=== PATIENT | male | born 1960 | race Caucasian/White ===

== ENCOUNTER → 2016-11-26 | Outpatient (CLI) | payer BC ==
[~2016-11-26] MED LIST: ALBU17IN INH; DOXY100C37 PO; OXYC1TAB23 PO; PRED20TA; PROAAER10 INH
--- NOTE | 2016-11-26 16:44 | REP ---
Unilateral right-sided rib series: Five views including PA chest. History: Right chest wall contusion. Anterior pain. Findings: PA chest radiograph demonstrates a tiny right apical pneumothorax measuring only 4 mm. No hemothorax is seen. Mediastinum is not widened. Heart is not enlarged. Lung zayas are otherwise clear. Multiple rib views demonstrate nondisplaced fractures of the posterolateral 8th, 9th, 10th, and 11th ribs. These appear acute. No other fractures seen. No bony destructive lesion is seen. Impression: Right 8th, 9th, 10th, and 11th rib fractures posterolaterally, nondisplaced. Small right apical pneumothorax. Signed by David Jimenez MD 11/26/2016 05:00 P
== END ==
LOC: M ADAMS 14:21
PROVIDERS: ATTEND Physician Assistant
DX: S22.41XA Multiple fractures of ribs, right side, initial encounter for closed fracture (principal); J93.9 Pneumothorax, unspecified; X58.XXXA Exposure to other specified factors, initial encounter; Y93.9 Activity, unspecified; Y92.9 Unspecified place or not applicable; Y99.8 Other external cause status

== ENCOUNTER 2016-11-27 15:33 | Emergency (ER) | payer BC ==
[~2016-11-27] VITALS: Ht 175.3 cm; Wt 70.0 kg
[2016-11-27] MEDS ORDERED: ALBU17IN INH (15:44)
[2016-11-27] MEDS ORDERED: OXYC1TAB23 PO (15:44)
[2016-11-27] MEDS ORDERED: PRED20TA (15:44)
[2016-11-27] MEDS ORDERED: IPRATROPIUM 0.5MG/ALBUTEROL 2.5MG INH SOL UD 3ML (DUONEB)(J7620) NEB ONE (16:45)
[2016-11-27] MEDS ORDERED: methylPREDNISolone INJ 125 MG/2 ML VIAL (J2930) IV ONE (16:45)
--- NOTE | 2016-11-27 17:11 | REP ---
Portable chest, 04:50 p.m., single AP view, the patient upright: Comparison is the right rib series of 11/26/2016. The the patient has known right rib fractures. There is atelectasis inferomedially in the right lung. There is no pneumothorax. Lung zayas otherwise clear. Cardiac size normal. Felisha, mediastinum, bony thorax are unremarkable. Signed by Zhou Espinosa MD 11/27/2016 05:02 P
[2016-11-27 17:22] LABS: BASO # 0.1 10^3/uL (0.0-0.2); BASO % 0.3 % (0.0-1.0); EOS % 0.1 % (0.0-3.0); IMMATURE GRANULOCYTE % 0.4 % (0-0); LYMPH # 0.6 10^3/uL (1.5-4.5); LYMPH % 3.7 % (24.0-44.0); MEAN CORPUSCULAR HEMOGLOBIN 31.1 pg (27.0-33.0); MEAN CORPUSCULAR HGB CONC 34.1 g/dl (32.0-36.5); MONO % 7.7 % (0.0-5.0); NEUTROPHILS # 13.6 10^3/uL (1.8-7.7); NEUTROPHILS % 87.8 % (36.0-66.0); PLATELET COUNT, AUTOMATED 215 10^3/uL (150-450); RED CELL DISTRIBUTION WIDTH 14.4 % (11.5-14.5); WHITE BLOOD COUNT 15.5 10^3/uL (4.0-10.0)
[2016-11-27 17:54] LABS: MONO # 1.2 10^3/uL (0.0-0.8)
[2016-11-27 17:57] LABS: ADD MORPHOLOGY? NO
[2016-11-27 18:04] LABS: ALBUMIN 3.8 GM/DL (3.2-5.2); ALBUMIN/GLOBULIN RATIO 1.19 (1.00-1.93); ALKALINE PHOSPHATASE 64 U/L (45-117); ALT/SGPT 19 U/L (12-78); ANION GAP 4 MEQ/L (8-16); AST/SGOT 10 U/L (15-37); BILIRUBIN,DIRECT 0.3 MG/DL (0.0-0.2); BILIRUBIN,TOTAL 0.9 MG/DL (0.2-1.0); BLOOD UREA NITROGEN 12 MG/DL (7-18); CALCIUM LEVEL 8.9 MG/DL (8.5-10.1); CARBON DIOXIDE LEVEL 29 MEQ/L (21-32); CHLORIDE LEVEL 106 MEQ/L (98-107); CREATININE FOR GFR 0.76 MG/DL (0.70-1.30); GLOMERULAR FILTRATION RATE > 60.0 (>56); GLUCOSE, FASTING 90 MG/DL (70-105); POTASSIUM SERUM 4.2 MEQ/L (3.5-5.1); SODIUM LEVEL 139 MEQ/L (136-145)
[2016-11-27] MEDS ORDERED: ISOVUE-370 76% 100ML VIAL (Q9967) As Ordered ONE (18:14)
[2016-11-27 18:17] VITALS: BP 151/107
--- NOTE | 2016-11-27 18:50 | REPUSA ---
CT of the chest Clinical statement: Chest pain. Technique: Multiple axial CT images were obtained from the thoracic inlet through the upper abdomen a fter a bolus administration of nonionic intravenous contrast. Coronal and sagittal reconstructions we re also obtained. No comparison is available. Findings: The central pulmonary arteries and thoracic aorta are unremarkable. Thyroid gland is within normal limits. There is no thoracic lymphadenopathy. There are no pericardial or pleural effusions. There is patchy atelectasis in the right lower lobe. Consolidation is seen in the medial left lower l obe. Limited imaging of the upper abdomen is unremarkable. There are acute subtle nondisplaced fractu res of the lateral left 8th, 9th, and 10th ribs. Impression: 1. Consolidation in the medial left lower lobe either represents pneumonia or atelectatic collapse of the segment of the left lower lobe. 2. Minimal patchy atelectasis in the right lower lung. 3. Acute subtle nondisplaced fractures of the lateral left 8th, 9th, and 10th ribs.
[2016-11-27] MEDS ORDERED: DOXYCYCLINE HYCLATE 100 MG in D5W MINI-BAG PLUS 100 ML IV ONE (19:15)
[2016-11-27] MEDS ORDERED: DOXY100C37 PO (19:38)
[2016-11-27] MEDS ORDERED: PROAAER10 INH (19:39)
--- NOTE | 2016-11-28 06:27 | ECGEPIP ---
Stationary ECG Study 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
== END 2016-11-27 20:02 | disposition home or self-care (01) ==
LOC: M ED 15:33
DX: J18.9 Pneumonia, unspecified organism (principal); S22.42XA Multiple fractures of ribs, left side, initial encounter for closed fracture; Z72.0 Tobacco use; W01.198A Fall on same level from slipping, tripping and stumbling with subsequent striking against other object, initial encounter; Y92.89 Other specified places as the place of occurrence of the external cause; Y93.89 Activity, other specified; Y99.9 Unspecified external cause status
CPT/HCPCS: 71010; 71260; 80048; 80076; 83880; 85025; 93005; 93041; 94640; 94760; 96374; 96375; 99285; J2930; Q9967

== ENCOUNTER → 2017-05-14 | Outpatient (REF) | payer BC ==
[2017-05-14 16:10] LABS: BASO # 0.1 10^3/uL (0.0-0.2); BASO % 0.9 % (0.0-1.0); EOS # 0.2 10^3/uL (0.0-0.50); EOS % 1.7 % (0.0-3.0); HEMATOCRIT 43.3 % (42.0-52.0); HEMOGLOBIN 14.4 g/dl (14.0-18.0); IMMATURE GRANULOCYTE % 0.6 % (0-3.0); LYMPH # 1.1 10^3/uL (1.5-4.5); MEAN CORPUSCULAR HEMOGLOBIN 28.6 pg (27.0-33.0); MEAN CORPUSCULAR HGB CONC 33.3 g/dl (32.0-36.5); MEAN CORPUSCULAR VOLUME 86.1 fl (80.0-96.0); MONO # 1.2 10^3/uL (0.0-0.8); MONO % 13.4 % (0.0-5.0); NEUTROPHILS # 6.3 10^3/uL (1.8-7.7); NEUTROPHILS % 71.4 % (36.0-66.0); PLATELET COUNT, AUTOMATED 446 10^3/uL (150-450); RED BLOOD COUNT 5.03 10^6/uL (4.30-6.10); RED CELL DISTRIBUTION WIDTH 14.4 % (11.5-14.5); WHITE BLOOD COUNT 8.8 10^3/uL (4.0-10.0)
[2017-05-14 16:21] LABS: URIC ACID 4.8 MG/DL (3.5-7.2)
[2017-05-14 16:21] LABS: RHEUMATOID FACTOR QUANT 46.6 IU/ML (0-15.0)
[2017-05-14 17:19] LABS: ERYTHROCYTE SEDIMENTATION RATE 42 mm/hr (0-20)
[2017-05-17 00:07] LABS: ANA (HEP2) Positive (.); Lyme Disease IgG/IgM Antibodie <0.91 ISR (0.00-0.90); Lyme Disease IgM Ab Quantitati <0.80 index (0.00-0.79)
[2017-05-17 00:07] LABS: CYCLIC CITRULLINATED PEPTIDE > 250 units (0-19)
== END ==
LOC: M LABDRAW1 15:37
DX: M13.0 Polyarthritis, unspecified (principal)
CPT/HCPCS: 84550

== ENCOUNTER → 2017-10-07 | Outpatient (REF) | payer BC ==
[2017-10-07 11:59] LABS: ALBUMIN 3.6 GM/DL (3.2-5.2); ALT/SGPT 18 U/L (12-78); AST/SGOT 13 U/L (7-37); C REACTIVE PROTEIN QUANTITATIV 0.56 MG/DL (0.00-0.30); GLOMERULAR FILTRATION RATE > 60.0 (>56)
[2017-10-07 12:03] LABS: BASO # 0.1 10^3/uL (0.0-0.2); BASO % 0.8 % (0.0-1.0); EOS # 0.2 10^3/uL (0.0-0.50); EOS % 1.9 % (0.0-3.0); HEMATOCRIT 46.6 % (42.0-52.0); HEMOGLOBIN 15.8 g/dl (13.5-17.5); IMMATURE GRANULOCYTE % 0.5 % (0-3.0); LYMPH # 1.6 10^3/uL (1.5-4.5); LYMPH % 16.4 % (24.0-44.0); MEAN CORPUSCULAR HEMOGLOBIN 30.3 pg (27.0-33.0); MEAN CORPUSCULAR HGB CONC 33.9 g/dl (32.0-36.5); MEAN CORPUSCULAR VOLUME 89.4 fl (80.0-96.0); MONO # 0.7 10^3/uL (0.0-0.8); MONO % 7.4 % (0.0-5.0); NEUTROPHILS # 6.9 10^3/uL (1.8-7.7); PLATELET COUNT, AUTOMATED 325 10^3/uL (150-450); RED BLOOD COUNT 5.21 10^6/uL (4.30-6.10); RED CELL DISTRIBUTION WIDTH 15.9 % (11.5-14.5); WHITE BLOOD COUNT 9.5 10^3/uL (4.0-10.0)
[2017-10-07 13:04] LABS: ERYTHROCYTE SEDIMENTATION RATE 3 mm/hr (0-20)
== END ==
LOC: M LABDRAW1 10:09
DX: M06.89 Other specified rheumatoid arthritis, multiple sites (principal); M15.0 Primary generalized (osteo)arthritis; M25.561 Pain in right knee
CPT/HCPCS: 84460

== ENCOUNTER → 2018-03-03 | Outpatient (REF) | payer BC ==
[2018-03-03 16:07] LABS: BASO # 0.1 10^3/uL (0.0-0.2); BASO % 0.8 % (0.0-1.0); EOS # 0.1 10^3/uL (0.0-0.50); EOS % 0.9 % (0.0-3.0); HEMATOCRIT 46.5 % (42.0-52.0); HEMOGLOBIN 16.1 g/dl (13.5-17.5); LYMPH # 1.6 10^3/uL (1.5-4.5); LYMPH % 20.6 % (24.0-44.0); MEAN CORPUSCULAR HEMOGLOBIN 31.3 pg (27.0-33.0); MEAN CORPUSCULAR HGB CONC 34.6 g/dl (32.0-36.5); MEAN CORPUSCULAR VOLUME 90.3 fl (80.0-96.0); MONO # 0.9 10^3/uL (0.0-0.8); MONO % 10.8 % (0.0-5.0); NEUTROPHILS # 5.3 10^3/uL (1.8-7.7); NEUTROPHILS % 66.4 % (36.0-66.0); PLATELET COUNT, AUTOMATED 334 10^3/uL (150-450); RED BLOOD COUNT 5.15 10^6/uL (4.30-6.10)
[2018-03-03 16:12] LABS: ALBUMIN 3.6 GM/DL (3.2-5.2); ALT/SGPT 15 U/L (12-78); C REACTIVE PROTEIN QUANTITATIV 0.76 MG/DL (0.00-0.30); CREATININE FOR GFR 0.76 MG/DL (0.70-1.30); GLOMERULAR FILTRATION RATE > 60.0 (>56)
[2018-03-03 16:52] LABS: ERYTHROCYTE SEDIMENTATION RATE 2 mm/hr (0-20)
== END ==
LOC: M LABDRAW1 15:28
PROVIDERS: ATTEND Internal Medicine Rheumatology
DX: Z51.81 Encounter for therapeutic drug level monitoring (principal); M05.79 Rheumatoid arthritis with rheumatoid factor of multiple sites without organ or systems involvement; Z79.899 Other long term (current) drug therapy

== ENCOUNTER → 2018-07-07 | Outpatient (CLI) | payer BC ==
[2018-07-07 16:54] LABS: BASO # 0.1 10^3/uL (0.0-0.2); BASO % 1.1 % (0.0-1.0); EOS # 0.2 10^3/uL (0.0-0.50); EOS % 2.3 % (0.0-3.0); HEMATOCRIT 45.9 % (42.0-52.0); HEMOGLOBIN 15.6 g/dl (13.5-17.5); LYMPH # 1.9 10^3/uL (1.5-4.5); MEAN CORPUSCULAR HEMOGLOBIN 30.4 pg (27.0-33.0); MEAN CORPUSCULAR VOLUME 89.5 fl (80.0-96.0); MONO # 1.1 10^3/uL (0.0-0.8); MONO % 13.3 % (0.0-5.0); NEUTROPHILS % 59.9 % (36.0-66.0); PLATELET COUNT, AUTOMATED 312 10^3/uL (150-450); RED BLOOD COUNT 5.13 10^6/uL (4.30-6.10); WHITE BLOOD COUNT 8.3 10^3/uL (4.0-10.0)
[2018-07-07 17:01] LABS: ALBUMIN 3.6 GM/DL (3.2-5.2); ALT/SGPT 15 U/L (12-78); BILIRUBIN,TOTAL 0.9 MG/DL (0.2-1.0); BLOOD UREA NITROGEN 13 MG/DL (7-18); CALCIUM LEVEL 8.7 MG/DL (8.5-10.1); CARBON DIOXIDE LEVEL 23 MEQ/L (21-32); CHLORIDE LEVEL 108 MEQ/L (98-107); CHOLESTEROL LEVEL 137 MG/DL (<200); CHOLESTEROL RISK RATIO 1.397 (<5); CREATININE FOR GFR 0.71 MG/DL (0.70-1.30); GLOMERULAR FILTRATION RATE > 60.0 (>56); GLUCOSE, FASTING 91 MG/DL (70-100); HDL CHOLESTEROL 98 MG/DL (>40); LDL CHOLESTEROL 30 MG/DL (<100); NON-HDL-C 39 MG/DL; POTASSIUM SERUM 4.3 MEQ/L (3.5-5.1); SODIUM LEVEL 138 MEQ/L (136-145); TOTAL PROTEIN 7.3 GM/DL (6.4-8.2); TRIGLYCERIDES LEVEL 45 MG/DL (<150)
== END ==
LOC: M WUC 14:05
PROVIDERS: ATTEND Family Medicine
DX: Z00.00 Encounter for general adult medical examination without abnormal findings (principal)

== ENCOUNTER 2018-12-17 12:40 | Observation (INO) | payer OTHER, BC ==
[~2018-12-17] VITALS: Ht 175.3 cm; Wt 68.4 kg
--- NOTE | 2018-12-17 14:08 | REP ---
Two-view chest: 12/17/2018. Indication: Dyspnea. Comparison: 11/27/2016. Findings: The hyperinflated lungs are clear. There is no pleural effusion or pneumothorax. The cardiomediastinal silhouette is unremarkable. Impression: Clear lungs. Electronically Signed by Bob Emanuel DO 12/17/2018 01:59 P
[2018-12-17] MEDS ORDERED: AFRI0.058 (14:19)
[2018-12-17] MEDS ORDERED: SILVER NITRATE APPLICATOR TOP ONE (14:30)
[2018-12-17] MEDS ORDERED: OXYMETAZOLINE NASAL SPRAY (AFRIN) ONE (15:30)
[2018-12-17] MEDS ORDERED: LIDOCAINE W/EPINEPHRINE 1% 20ML VIAL SC ONE (18:00)
[2018-12-17] MEDS ORDERED: EPINEPHrine 1MG/10ML SYRINGE 1.5IN IV STA ×2 (18:03→18:38)
[2018-12-17] MEDS ORDERED: EPINEPHrine INJ 1 MG/ML 1ML AMP As Ordered ONE (18:05)
[2018-12-17 21:00] VITALS: BP 133/85
--- NOTE | 2018-12-17 22:59 | HPEPDOC ---
[facility] Medical History & Physical Date of Admission Dec 17, 2018 Date of Service: Dec 17, 2018 Primary Care Physician: Sarai Dillard MD Attending Physician: SORAIDA CLAYTON MD History and Physical TIME OF SERVICE: 7:45 PM CHIEF COMPLAINT: Nosebleed HISTORY OF PRESENT ILLNESS: This is a 58-year-old male who presented to the ED with complaints of having a nosebleed for 12 hours. He attributes this to exposure to smoke/fumes from the undercoating applied to the bottom of cars in preparation for winter. Associated symptoms include headache, which has since resolved. He has a chronic cough which he attributes to smoking, denies having fevers, denies having chills, denies having chest pain, denies having palpitations. Per discussion with the ED provider. He had a Rhino Rocket which was removed after cauterization of the blood vessels by (ENT). Shortly after my arrival his nose began bleeding again. REVIEW OF SYSTEMS: 12 point review of systems negative except as listed in HPI PAST MEDICAL/ SURGICAL HISTORY: Rheumatoid arthritis ? SOCIAL HISTORY: Smoker FAMILY HISTORY: His son has chronic back pain, renal cysts, urolithiasis, and vitamin D deficiency Diabetes ALLERGIES: Please see below. HOME MEDICATIONS: Please see below. PHYSICAL EXAMINATION: VITAL SIGNS: Please see below. GENERAL APPEARANCE: Well-nourished, well-developed, not in apparent distress HEENT: Normocephalic, atraumatic, mucous membranes moist and pink. There is bleeding from the right nare. CARDIOVASCULAR: Regular rate and rhythm. No murmurs, rubs or gallops LUNGS: Clear to auscultation on room air. Bilaterally MUSCULOSKELETAL: Range of motion intact in all 4 extremities, able to stand without assistance NEUROLOGICAL: Cranial nerves II-12 are grossly intact. Speech is not dysarthric PSYCHIATRIC: Alert and oriented to person, place and time, able to understand and follow commands LABORATORY DATA: See below. IMAGING: Chest x-ray "Impression:Clear lungs." ASSESSMENT: is a 58-year-old male with past history medical of arthritis who will be admitted for observation after having a prolonged episode of epistaxis. PLAN: 1.Epistaxis. His hematocrit was 45, INR 0.9, map was 100, and his heart rate ranged from 69- 82. He is not taking any blood thinners at home The bleeding stopped temporarily after cauterization. Plan: Admit to medical floor for observation/follow-up repeat hemoglobin and hematocrit tonight/follow-up with ENT in the morning ENT 2. Arthritis. Reports that he has rheumatoid arthritis but based on his medical records , he is not taking immunomodulators Plan: Tylenol when necessary for joint pain 3. Tobacco abuse. Plan: Nicotine patch/smoking cessation education DVT prophylaxis with SCDs. Disposition likely home tomorrow if hemoglobin is stable and epistaxis has resolved Vital Signs Vital Signs Date Time Temp Pulse Resp B/P (MAP) Pulse Ox O2 Delivery O2 Flow Rate FiO2 12/17/18 19:51 66 141/86 (104) 72 140/93 (109) 85 142/101 (115) 12/17/18 14:24 97.6 17 97 Room Air Laboratory Data Labs 24H Laboratory Tests 2 12/17/18 15:40: Bedside Prothrombin Time INR 0.9, Prothrombin Time (MISC) 11.1L 12/17/18 15:44: POC Glucose (Misc Panel) 91, POC Sodium (Misc Panel) 139, POC Potassium (Misc Panel) 4.1, POC Chloride (Misc Panel) 105, POC Total CO2 (Misc Panel) 23.0, POC Blood Urea Nitrogen (Misc Panel 22, POC Ionized Calcium (Misc Panel) 4.7, POC Creatinine (Misc Panel) 0.7, POC Hematocrit (Misc Panel) 45.0 Home Medications Scheduled Oxymetazoline HCl (Afrin) 15 Ml [place], 2 SPRAY NA BID Allergies Coded Allergies: No Known Allergies (Unverified , 11/27/16) A-FIB/CHADSVASC A-FIB History Current/History of A-Fib/PAF?: No Current PO Anticoag Therapy: No SORAIDA CLAYTON MD Dec 17, 2018 22:59
[2018-12-17] MEDS ORDERED: NICOTINE 21MG/24HR 1 EA TRANSDERMAL TD SCH (23:45)
[2018-12-17] MEDS ORDERED: ACETAMINOPHEN 650MG ER TAB (TYLENOL ARTHRITIS) PO PRN (23:45)
[2018-12-18 00:49] LABS: HEMATOCRIT 41.2 % (42.0-52.0); HEMOGLOBIN 14.2 g/dl (13.5-17.5)
[2018-12-18 06:00] VITALS: BP 123/77
[2018-12-18 06:53] LABS: HEMOGLOBIN 13.9 g/dl (13.5-17.5); MEAN CORPUSCULAR HEMOGLOBIN 30.8 pg (27.0-33.0); MEAN CORPUSCULAR HGB CONC 33.9 g/dl (32.0-36.5); MEAN CORPUSCULAR VOLUME 90.7 fl (80.0-96.0); PLATELET COUNT, AUTOMATED 261 10^3/uL (150-450); RED BLOOD COUNT 4.52 10^6/uL (4.30-6.10); WHITE BLOOD COUNT 8.3 10^3/uL (4.0-10.0)
[2018-12-18 07:16] LABS: BLOOD UREA NITROGEN 33 MG/DL (7-18); CALCIUM LEVEL 8.5 MG/DL (8.5-10.1); CARBON DIOXIDE LEVEL 24 MEQ/L (21-32); CHLORIDE LEVEL 109 MEQ/L (98-107); CREATININE FOR GFR 0.66 MG/DL (0.70-1.30); GLOMERULAR FILTRATION RATE > 60.0 (>56); GLUCOSE, FASTING 95 MG/DL (70-100); POTASSIUM SERUM 3.9 MEQ/L (3.5-5.1); SODIUM LEVEL 139 MEQ/L (136-145)
[2018-12-18] MEDS ORDERED: NS 1,000 ML IV SCH (08:24)
[2018-12-18] MEDS ORDERED: NEOSPORIN TOP OINT 15GM As Ordered ONE (13:45)
[2018-12-18] MEDS ORDERED: fentaNYL 100 MCG/2 ML INJECTION (J3010) As Ordered ONE (14:14)
[2018-12-18] MEDS ORDERED: MIDAZOLAM INJ 2 MG/2 ML VIAL (J2250) As Ordered ONE (14:14)
[2018-12-18] MEDS ORDERED: PROPOFOL 200 MG/20 ML VIAL As Ordered ONE (14:14)
[2018-12-18] MEDS ORDERED: ONDANSETRON 4MG/2ML VIAL (J2405) As Ordered ONE (14:14)
[2018-12-18] MEDS ORDERED: LIDOCAINE 2% INJ 100 MG/5 ML SDV (FOR ANES.) As Ordered ONE (14:14)
[2018-12-18] MEDS ORDERED: dexameTHASONE 4 MG/ML 1ML VIAL (J1100) As Ordered ONE (14:14)
[2018-12-18] MEDS ORDERED: SUCCINYLCHOLINE 100 MG/5 ML SYRINGE (J0330) As Ordered ONE (14:14)
[2018-12-18] MEDS ORDERED: LACRILUBE (AKWA TEARS) OPHTH OINT 3.5 GM As Ordered ONE (14:15)
[2018-12-18] MEDS ORDERED: METHYLENE BLUE 0.5% (5MG/ML) 10 ML AMP (PROVAYBLUE)(Q9968 PER 1MG) As Ordered ONE (14:15)
[2018-12-18] MEDS ORDERED: EPINEPHrine 1MG/ML INJ 30ML MD-VIAL As Ordered ONE (14:15)
--- NOTE | 2018-12-18 14:32 | ER ---
DATE OF CONSULTATION: 12/17/2018 Wesley Sim is a patient who presented to the hospital on the 17 of December with epistaxis. The patient was seen in the emergency department and his nose was decongested and infiltrated with lidocaine with epinephrine. Examination shows bleeding from his nose on that side. Anterior nasal cautery was performed in the emergency department. The patient was admitted and watched overnight. There has been some bleeding posteriorly on that right side. It was recommended that the patient go to the operating room where under general anesthesia cautery and control of epistaxis performed under general anesthesia with endoscopy. The patient was admitted with epistaxis.
[2018-12-18] MEDS ORDERED: LR 1,000 ML IV SCH ×2 (15:00→16:00)
[2018-12-18] MEDS ORDERED: fentaNYL 100 MCG/2 ML INJECTION (J3010) IV PRN (15:00)
[2018-12-18] MEDS ORDERED: PERCOCET 5MG/325MG TAB PO PRN (15:00)
[2018-12-18] MEDS ORDERED: ONDANSETRON 4MG/2ML VIAL (J2405) IV PRN (15:00)
[2018-12-18] MEDS ORDERED: HYDROMORPHONE HCL 0.5 MG/ 0.5 ML SYRINGE (J1170 PER 1) IV PRN (15:00)
--- NOTE | 2018-12-18 15:17 | RO ---
DATE OF PROCEDURE: 12/18/2018 PREPROCEDURE DIAGNOSIS: Recurrent epistaxis. POSTPROCEDURE DIAGNOSIS: Recurrent epistaxis. PROCEDURE: Right nasal cautery, endoscopic. SURGEON: Juan Jasmine MD DIRECTOR OF HEALTH EDUCATION: ANESTHESIA: General. FINDINGS: There was blood posteriorly. Blood was at the sphenopalatine on an area on the right side. DESCRIPTION OF PROCEDURE: I used pledgets of adrenaline 1:100,000. Using suction cautery, I cauterized the area of the sphenopalatine artery, as well as cauterizing some areas anteriorly. Afterwards, there was no bleeding. The patient tolerated the procedure well. Less than 1 mL estimated blood loss. The patient was extubated and transferred to recovery room in excellent condition.
[2018-12-18 16:00] VITALS: BP 118/68
--- NOTE | 2018-12-18 16:56 | DS.PDOC ---
Discharge Summary General Date of Admission Dec 17, 2018 at 12:41 Date of Discharge 12/18/18 Discharge Summary PROCEDURES PERFORMED DURING STAY: Right nasal cautery, endoscopic. ADMITTING DIAGNOSES: 1. Epistasis 2. Rheumatoid arthritis DISCHARGE DIAGNOSES: 1. Epistasis 2. Rheumatoid arthritis COMPLICATIONS/CHIEF COMPLAINT: Epistaxis D/T Trauma. HISTORY OF PRESENT ILLNESS: "This is a 58-year-old male who presented to the ED with complaints of having a nosebleed for 12 hours. He attributes this to exposure to smoke/fumes from the undercoating applied to the bottom of cars in preparation for winter. Associated symptoms include headache, which has since resolved. He has a chronic cough which he attributes to smoking, denies having fevers, denies having chills, denies having chest pain, denies having palpitations. Per discussion with the ED provider. He had a Rhino Rocket which was removed after cauterization of the blood vessels by (ENT). Shortly after my arrival his nose began bleeding again." HOSPITAL COURSE: Patient was admitted overnight for observation and was taken to the OR for R. nasal endoscopic cautery due to persistent bleeding. Bleeding now controlled and patient has no complaints, cleared from ENT for discharge. Patient noted stool to be dark today but Hb remained stable. Likely from blood trickling down the esophagus from nasal pharynx. Patient advised to avoid fumes at work and wear a mask if he must return to work to avoid presumed irritation that he thought was the etiology. Also advised to f/u PMD regarding dark stool if it doesn't resolve in a few days now that his epistasis is controlled. DISCHARGE MEDICATIONS: Please see below. ALLERGIES: Please see below. PHYSICAL EXAMINATION ON DISCHARGE: VITAL SIGNS: Please see below. General: No acute distress, Alert Eyes: Normal sclera, EOMI, JESSICA HENT: Atraumatic, dressing around nose clean and dry Cardiovascular: Normal rate, normal rhythm. Pulmonary: Clear to auscultation b/l, no wheezing GI: Soft, nontender, nondistended Skin: Warm and dry Neuro: CN grossly intact. No focal deficits. Strengths equal b/l. Psych: oriented x 3 LABORATORY DATA: Please see below. ACTIVITY: [As tolerated]. DIET: Regular DISCHARGE PLAN: f/u PMD within 1 week Wear mask or avoid toxic fumes at work if possible Inform PMD if stool remains dark after several days Return to ER if epistasis recurs or ruben blood in stool or gross bleeding per rectum noted DISPOSITION:Home . DISCHARGE INSTRUCTIONS: f/u PMD within 1 week Wear mask or avoid toxic fumes at work if possible Inform PMD if stool remains dark after several days Return to ER if epistasis recurs or ruben blood in stool or gross bleeding per rectum noted ITEMS TO FOLLOWUP ON ON OUTPATIENT: None DISCHARGE CONDITION: [Stable]. TIME SPENT ON DISCHARGE: 35 minutes. Vital Signs/I&Os Vital Signs Date Time Temp Pulse Resp B/P (MAP) Pulse Ox O2 Delivery O2 Flow Rate FiO2 12/18/18 15:10 82 16 124/76 (92) 94 Room Air 12/18/18 15:05 97.9 I&O- Last 24 Hours up to 6 AM 12/18/18 06:00 Intake Total 30 ml Balance 30 ml Laboratory Data Labs 24H Laboratory Tests 2 12/18/18 06:33: Nucleated Red Blood Cells % (auto) 0.0, Anion Gap 6L, Glomerular Filtration Rate > 60.0, Calcium Level 8.5 CBC/BMP Laboratory Tests 12/18/18 00:36 12/18/18 06:33 Microbiology Microbiology 12/18/18 Stool Occult Blood (ISAEL) - Final, Complete Discharge Medications Scheduled Oxymetazoline HCl (Afrin) 15 Ml [place], 2 SPRAY NA BID Allergies Coded Allergies: No Known Allergies (Unverified , 11/27/16) AUREA PARK MD Dec 18, 2018 16:56
== END 2018-12-18 17:00 | disposition home or self-care (01) ==
LOC: M ED 12:40 → M ED INP 12:41 → M ED 14:25 → M MS5PR 21:00
PROVIDERS: ADMIT Internal Medicine; ATTEND Internal Medicine
DX: R04.0 Epistaxis (principal); T59.91XA Toxic effect of unspecified gases, fumes and vapors, accidental (unintentional), initial encounter; Y92.89 Other specified places as the place of occurrence of the external cause; Y99.0 Civilian activity done for income or pay; M06.9 Rheumatoid arthritis, unspecified; R05 Cough; E55.9 Vitamin D deficiency, unspecified; F17.218 Nicotine dependence, cigarettes, with other nicotine-induced disorders
CPT/HCPCS: 31238; 36415; 71046; 80047; 80048; 82270; 85014; 85018; 85027; 96361; 96372; 96374; 99284; J0330; J1100; J2250; J2405; J3010; Q9968

== ENCOUNTER → 2021-11-23 | Outpatient (CLI) | payer BC, OTHER ==
[~2021-11-23] MED LIST changes: +DOXY-443 PO; -DOXY100C37 PO; +OXYM15SP2
[2021-11-23 16:47] LABS: BASO # 0.1 10^3/uL (0.0-0.2); BASO % 1.5 % (0.0-1.0); EOS # 0.1 10^3/uL (0.0-0.5); EOS % 1.5 % (0.0-3.0); HEMATOCRIT 46.5 % (42.0-52.0); HEMOGLOBIN 15.5 g/dl (13.5-17.5); LYMPH # 1.1 10^3/uL (1.5-5.0); MEAN CORPUSCULAR HEMOGLOBIN 31.4 pg (27.0-33.0); MEAN CORPUSCULAR HGB CONC 33.3 g/dl (32.0-36.5); MEAN CORPUSCULAR VOLUME 94.3 fl (80.0-96.0); MONO # 0.5 10^3/uL (0.0-0.8); NEUTROPHILS # 4.7 10^3/uL (1.5-8.5); NEUTROPHILS % 72.7 % (36.0-66.0); PLATELET COUNT, AUTOMATED 301 10^3/uL (150-450); RED BLOOD COUNT 4.93 10^6/uL (4.30-6.10); WHITE BLOOD COUNT 6.5 10^3/uL (4.0-10.0)
[2021-11-23 16:51] LABS: ALBUMIN 3.6 GM/DL (3.2-5.2); ALT/SGPT 27 U/L (12-78); BILIRUBIN,TOTAL 0.5 MG/DL (0.2-1.0); BLOOD UREA NITROGEN 10 MG/DL (7-18); CALCIUM LEVEL 9.1 MG/DL (8.8-10.2); CARBON DIOXIDE LEVEL 26 MEQ/L (21-32); CHLORIDE LEVEL 108 MEQ/L (98-107); CHOLESTEROL LEVEL 163 MG/DL (<200); CHOLESTEROL RISK RATIO 1.347 (<5); CREATININE FOR GFR 0.77 MG/DL (0.70-1.30); GLOMERULAR FILTRATION RATE > 60.0 (>49); GLUCOSE, FASTING 114 MG/DL (70-100); HDL CHOLESTEROL 121 MG/DL (>40); LDL CHOLESTEROL 26 MG/DL (<100); NON-HDL-C 42 MG/DL; POTASSIUM SERUM 4.2 MEQ/L (3.5-5.1); SODIUM LEVEL 139 MEQ/L (136-145); TOTAL PROTEIN 7.3 GM/DL (6.4-8.2); TRIGLYCERIDES LEVEL 80 MG/DL (<150)
== END ==
LOC: M PLALAB 12:31
PROVIDERS: ATTEND Family Medicine
DX: Z00.00 Encounter for general adult medical examination without abnormal findings (principal); L03.211 Cellulitis of face

== ENCOUNTER → 2024-05-15 | Outpatient (CLI) | payer OTHER ==
[~2024-05-15] MED LIST changes: +DOXY-441 PO; -DOXY-443 PO
[2024-05-15 15:33] LABS: BASO # 0.1 10^3/uL (0.0-0.2); BASO % 1.2 % (0.0-1.0); EOS # 0.1 10^3/uL (0.0-0.5); EOS % 1.7 % (0.0-3.0); HEMATOCRIT 42.2 % (42.0-52.0); HEMOGLOBIN 14.1 g/dl (13.5-17.5); LYMPH # 1.6 10^3/uL (1.5-5.0); LYMPH % 20.8 % (24.0-44.0); MEAN CORPUSCULAR HEMOGLOBIN 30.9 pg (27.0-33.0); MEAN CORPUSCULAR HGB CONC 33.4 g/dl (32.0-36.5); MEAN CORPUSCULAR VOLUME 92.3 fl (80.0-96.0); MONO # 0.8 10^3/uL (0.0-0.8); MONO % 10.7 % (2.0-8.0); NEUTROPHILS # 4.9 10^3/uL (1.5-8.5); NEUTROPHILS % 65.3 % (36.0-66.0); PLATELET COUNT, AUTOMATED 279 10^3/uL (150-450); RED BLOOD COUNT 4.57 10^6/uL (4.30-6.10); WHITE BLOOD COUNT 7.5 10^3/uL (4.0-10.0)
[2024-05-15 15:40] LABS: ALBUMIN 3.8 G/DL (3.2-5.2); ALKALINE PHOSPHATASE 66 U/L (40-129); ALT/SGPT 19 U/L (7.0-40); AST/SGOT 21 U/L (<34); BILIRUBIN,TOTAL 0.5 MG/DL (0.3-1.2); BLOOD UREA NITROGEN 16 MG/DL (9-23); CALCIUM LEVEL 9.1 MG/DL (8.3-10.6); CARBON DIOXIDE LEVEL 24 MMOL/L (20-31); CHLORIDE LEVEL 108 MMOL/L (98-107); CHOLESTEROL LEVEL 148 MG/DL (<200); CHOLESTEROL RISK RATIO 1.57 (<5); CREATININE FOR GFR 0.75 MG/DL (0.70-1.30); GLOMERULAR FILTRATION RATE > 60.0 (>49); GLUCOSE, FASTING 151 MG/DL (74-106); LDL CHOLESTEROL 26.6 MG/DL (<100); POTASSIUM SERUM 4.7 MMOL/L (3.5-5.1); SODIUM LEVEL 142 MMOL/L (136-145); TOTAL PROTEIN 7.5 G/DL (5.7-8.2); TRIGLYCERIDES LEVEL 137 MG/DL (<150)
== END ==
LOC: M PLAIMG 13:06
PROVIDERS: ATTEND Nurse Practitioner Family
DX: Z00.00 Encounter for general adult medical examination without abnormal findings (principal); R05.9 Cough, unspecified; R91.8 Other nonspecific abnormal finding of lung field